=== PATIENT | male | born 1985 | race Caucasian/White ===

== ENCOUNTER 2020-07-31 13:30 | Emergency (ER) | payer SELFPAY ==
[~2020-07-31] VITALS: Ht 175.3 cm; Wt 81.6 kg
[2020-07-31] MEDS ORDERED: KETOROLAC TROMETHAMINE INJ 60 MG/2 ML VIAL IM ONE (14:30)
[2020-07-31] MEDS ORDERED: CLINDAMYCIN HCL 150 MG CAPSULE PO ONE ×2 (14:30→14:31)
[2020-07-31] MEDS ORDERED: KETOROLAC TROMETHAMINE INJ 30 MG/ML VIAL ONE (14:31)
--- NOTE | 2020-07-31 14:40 | NUR ---
Crutches dispensed. Pt instructed on proper use of crutches. Patient able to demonstrate correct use of crutches.
--- NOTE | 2020-07-31 14:41 | NUR ---
Patient discharged to home in stable condition. Written and verbal after care instructions given. Patient verbalizes understanding of instruction. Pt ambulatory with a steady gait w/ an aide of crutches.
[2020-07-31 14:42] VITALS: BP 141/80
== END 2020-07-31 14:42 | disposition home or self-care (01) ==
LOC: ER 13:31
DX: L03.115 Cellulitis of right lower limb (principal); Z60.2 Problems related to living alone
CPT/HCPCS: 73610; 96372; 99283; J1885